=== PATIENT | male | born 1980 | race Caucasian/White ===

== ENCOUNTER 2018-08-19 21:54 | Emergency (ER) | payer OTHER ==
[~2018-08-19] VITALS: Ht 188 cm; Wt 89.4 kg
[2018-08-19 21:58] VITALS: BP 144/90
--- NOTE | 2018-08-20 00:08 | NUR ---
Patient discharged to home in stable condition. Written and verbal after care instructions given. Patient verbalizes understanding of instruction.
== END 2018-08-20 00:32 | disposition home or self-care (01) ==
LOC: ER 21:57
DX: T40.0X1A Poisoning by opium, accidental (unintentional), initial encounter (principal); Z60.2 Problems related to living alone; Y92.89 Other specified places as the place of occurrence of the external cause